=== PATIENT | female | born 1975 | race Hispanic/Latino ===

== ENCOUNTER 2018-08-14 11:57 | Emergency (ER) | payer BC ==
[2018-08-14 12:29] LABS: Bilirubin Small (Negative); Blood, Urine Large (Negative); Clarity CLOUDY (Clear); Glucose, Urine (Dipstick) Negative (Negative); Leukocyte Small (Negative); Nitrite Negative (Negative); Protein, Urine (Dipstick) Trace mg/dL (Neg-Trace); Specific Gravity, Urine 1.026 (1.002-1.036)
[2018-08-14 12:33] LABS: Pathc Cast-AUWi Flag 2.76 (0-2.49); Yeast-AUWi Flag 149.4 (0-25.0)
[2018-08-14 12:34] LABS: Pregnancy Test - Urine (BHCG) Negative (Negative); Pregu Control Background? CLEAR/WHITE (CLR/WHITE); Pregu Control Bar Appear? YES (CONTROL BAR); Specific Gravity 1.026 (1.002-1.036)
[2018-08-14 12:38] LABS: #Eosinphils 0.1 thou/uL (0.0-0.7); #Lymphocytes 2.2 thou/uL (1.20-3.40); #Monocytes 0.4 thou/uL (0.11-0.59); #Neutrophils 3.1 thou/uL (1.40-6.50); %Basophils 0.7 % (0.0-1.0); %Eosinophils 1.3 % (0.0-10.0); %Lymphocytes 37.7 % (21.0-51.0); %Monocytes 7.2 % (0.0-10.0); %Neutrophils 53.1 % (42.0-75.0); Hemoglobin 15.6 g/dL (12.0-16.0); Mean Corpuscular HGB CONC 33.3 g/dL (32.0-36.0); Mean Corpuscular Hemoglobin 30.3 pg (27.0-31.0); Mean Platelet Volume 6.4 fL (7.4-10.4); Platelet Count 242 thou/uL (130-400); RBC Distribution Width 12.5 % (11.5-14.5); Red Blood Cell (RBC) Count 5.16 mill/uL (4.20-5.40); White Blood Cell (WBC) Count 5.9 thou/uL (4.8-10.8)
[2018-08-14 12:41] LABS: RBC/HPF 0-3 HPF (0-3)
[2018-08-14 12:42] LABS: Bacteria/HPF 3+ HPF (None Seen); Hyaline Casts/LPF 0-3 HYALINE CAST LPF (0-3 Hyaline); Manual Microscopic Reviewed? No Path Casts Seen; Yeast-All Forms None Seen HPF (None Seen)
[2018-08-14 13:04] LABS: ALT (SGPT) 115 U/L (8-55); AST (SGOT) 80 U/L (5-34); Alkaline Phosphatase 102 U/L (40-150); Anion Gap 11 mmol/L (10-20); BUN (Urea Nitrogen) 7 mg/dL (7.0-18.7); Bilirubin, Total 0.8 mg/dL (0.2-1.2); Calc. Creatinine Clearance 0 mL/min (70-130); Calcium 8.3 mg/dL (7.8-10.44); Carbon Dioxide 25 mmol/L (22-29); Chloride 105 mmol/L (98-107); Estimated GFR-MDRD 75; Globulin 3.5 g/dL (2.4-3.5); Glucose 96 mg/dL (70-105); Lipase 28 U/L (8-78); Potassium 3.4 mmol/L (3.5-5.1); Protein, Total 7.5 g/dL (6.0-8.3); Sodium 138 mmol/L (136-145)
[2018-08-14] MEDS ORDERED: Mag-Al 1200 mg/1200 mg/30 ML UDCUP ONE (13:14)
[2018-08-14] MEDS ORDERED: Lidocaine Viscous Sol 2% 15 ml UD Cup ONE (13:14)
== END 2018-08-14 14:36 | disposition home or self-care (01) ==
LOC: ERS 11:57
DX: R10.13 Epigastric pain (principal); F32.9 Major depressive disorder, single episode, unspecified; Z87.891 Personal history of nicotine dependence; Z79.899 Other long term (current) drug therapy
CPT/HCPCS: 36415; 80053; 81003; 81015; 81025; 83690; 85025; 99284

== ENCOUNTER 2019-01-05 08:34 | Outpatient (CLI) | payer BC ==
--- NOTE | 2019-01-05 10:21 | CT ---
CT SOFT TISSUE NECK WITH CONTRAST: HISTORY: Right neck mass. TECHNIQUE: Contrast enhanced CT images of the soft tissue neck obtained. IV contrast was given. FINDINGS: The visualized paranasal sinuses are unremarkable. The parotid spaces are unremarkable. There is so me symmetric prominence of the palatine tonsils. No significant evidence of asymmetric lymphadenopathy is seen. Mildly enlarged right 5A and 5B lymph nodes seen. They are not significantly enlarged, measuring approximately 5 mm. An area of concern, posterior to the right ear, demonstrates no evidence of masses or lesions. A nor mal sternocleidomastoid muscle is seen in the region. No evidence of carotid space mass is seen. A normal thyroid gland is seen. IMPRESSION: Normal CT soft tissue neck without evidence of significant abnormality seen. POS: [facility]
[2019-01-05] MEDS ORDERED: Iopamidol 370 76% 100 ML VIAL ONE (10:56)
== END 2019-01-05 08:35 | disposition home or self-care (01) ==
LOC: BICCT 08:34
PROVIDERS: ATTEND Specialist
DX: R22.1 Localized swelling, mass and lump, neck (principal)
CPT/HCPCS: 70491; Q9967

== ENCOUNTER 2019-02-10 15:27 | Outpatient (CLI) | payer BC ==
--- NOTE | 2019-02-10 16:02 | MMO ---
Bilateral MAMMO Bilat Screen [facility]. CLINICAL HISTORY: Patient is 44 years old and is seen for screening. The patient has no family history of breast cancer. The patient has no personal history of cancer. VIEWS: The views performed were: bilateral craniocaudal with tomosynthesis and bilateral mediolateral oblique with tomosynthesis. FILMS COMPARED: The present examination has been compared to a prior imaging study performed at [facility] on 10/26/2016. MAMMOGRAM FINDINGS: There are scattered fibroglandular densities. There are no suspicious masses, suspicious calcifications, or new areas of architectural distortion. IMPRESSION: THERE IS NO MAMMOGRAPHIC EVIDENCE OF MALIGNANCY. A ROUTINE FOLLOW-UP MAMMOGRAM IN 1 YEAR IS RECOMMENDED. THE RESULTS OF THIS EXAM WERE SENT TO THE PATIENT. ACR BI-RADS Category 1 - Negative MAMMOGRAPHY NOTE: 1. A negative mammogram report should not delay a biopsy if a dominant of clinically suspicious mass is present. 2. Approximately 10% to 15% of breast cancers are not detected by mammography. 3. Adenosis and dense breasts may obscure an underlying neoplasm.
== END 2019-02-10 15:28 | disposition home or self-care (01) ==
LOC: BICMAMMO 15:27
PROVIDERS: ATTEND Family Medicine
DX: Z12.31 Encounter for screening mammogram for malignant neoplasm of breast (principal)
CPT/HCPCS: 77063; 77067

== ENCOUNTER 2020-08-17 10:05 | Outpatient (CLI) | payer BC ==
--- NOTE | 2020-08-17 10:55 | MMO ---
Bilateral MAMMO Bilat Screen [facility]. CLINICAL HISTORY: Patient is 45 years old and is seen for screening. The patient has no family history of breast cancer. The patient has no personal history of cancer. VIEWS: The views performed were: bilateral craniocaudal with tomosynthesis and bilateral mediolateral oblique with tomosynthesis. FILMS COMPARED: The present examination has been compared to prior imaging studies performed at [facility] on 10/26/2016 and 02/10/2019. This study has been interpreted with the assistance of computer-aided detection. MAMMOGRAM FINDINGS: There are scattered fibroglandular densities. There are no suspicious masses, suspicious calcifications, or new areas of architectural distortion. IMPRESSION: THERE IS NO MAMMOGRAPHIC EVIDENCE OF MALIGNANCY. A ROUTINE FOLLOW-UP MAMMOGRAM IN 1 YEAR IS RECOMMENDED. THE RESULTS OF THIS EXAM WERE SENT TO THE PATIENT. ACR BI-RADS Category 1 - Negative MAMMOGRAPHY NOTE: 1. A negative mammogram report should not delay a biopsy if a dominant of clinically suspicious mass is present. 2. Approximately 10% to 15% of breast cancers are not detected by mammography. 3. Adenosis and dense breasts may obscure an underlying neoplasm. Reported by: ARELI KEMP MD Electonically Signed: [id number]
== END 2020-08-17 10:06 | disposition home or self-care (01) ==
LOC: BICMAMMO 10:05
PROVIDERS: ATTEND Family Medicine
DX: Z12.31 Encounter for screening mammogram for malignant neoplasm of breast (principal)
CPT/HCPCS: 77063; 77067